=== PATIENT | female | born 1970 | race American Indian/Alaskan Native ===

== ENCOUNTER 2017-12-19 07:48 | Outpatient (CLI) | payer BC ==
--- NOTE | 2017-12-19 09:23 | XRay Report ---
XRAY BILATERAL KNEE THREE VIEWS EACH: 12/19/17 07:48:00 CLINICAL: Bilateral knee pain. FINDINGS: Right: Mild osteopenia. No fracture or dislocation. Minimal osteoarthritis. Normal soft tissues. Left: Mild osteopenia. No fracture or dislocation. Minimal osteoarthritis.Normal soft tissues. IMPRESSION: Osteopenia and minimal osteoarthritis.
== END 2017-12-19 07:49 | disposition home or self-care (01) ==
LOC: SPVIMAG 07:48
PROVIDERS: ATTEND Orthopaedic Surgery Sports Medicine
DX: M17.0 Bilateral primary osteoarthritis of knee (principal); M85.861 Other specified disorders of bone density and structure, right lower leg; M85.862 Other specified disorders of bone density and structure, left lower leg